=== PATIENT | male | born 1960 | race Caucasian/White ===

== ENCOUNTER 2021-01-21 00:49 | Outpatient (CLI) | payer OTHER, SELFPAY ==
--- NOTE | 2021-01-21 | DI.MRI_ITS ---
Exam(s) MR BRAIN WO/W EXAM: MR BRAIN WO/W CLINICAL HISTORY: F/U ANAPLASTIC ASTROCYTOMA OF BRAIN,C71.9,S/P TREATMENT TECHNIQUE: Multiplanar multisequence MRI of the brain was performed. Both noninfused and contrast i nfused sequences were performed. IV Contrast injected was 20 cc Dotarem. COMPARISON: Compared to outside study performed 09/20/2020 which show some appears to have been a li mited noninfused study. FINDINGS: CEREBRAL PARENCHYMA: There is evidence of previous surgery with left parietal craniotomy and a prominent sub craniotomy si te CSF intensity tract extending from the craniotomy site into the ipsilateral left lateral ventricle roof is noted, this surgical bed measuring approximately 4 cm craniocaudal by 3 cm wide by 3.2 cm wi de. The amount of a surrounding white matter signal abnormality on T2 and FLAIR images is unchanged. No associated she shift. There are no significant enhancing mural nodules nor ring enhancement at this tract level nor within the ventricle and no significant abnormal meningeal enhancement is noted. There are no ring enhancing lesions in the brain. No abnormal signal evident in the cerebellar hem ispheres nor within the ricco, midbrain, and thalami nor in the right-sided white matter. There is no evidence of intracranial hemorrhage, intra or extra-axial. No evidence of cerebellar tonsillar ectopia. PITUITARY GLAND: Upper normal size. No mass nor parasellar abnormality. No obvious abnormality in th e cavernous sinuses. FLOW VOIDS: The expected flow void are noted. No evidence of obvious aneurysm nor obvious vascular ma lformation. Right vertebral artery is dominant. PARANASAL SINUSES: The visualized paranasal sinuses appear unremarkable. ORBITS: No obvious abnormal findings. IMPRESSION: 1. No significant change compared to the prior noninfused outside MRI scan of 09/20/2020. 2. No new abnormal enhancing lesions at nor distal from the surgical tract. An addendum will follow if we receive additional images from the outside study which are apparently b eing sent for. DATA REPOSITORY:
[2021-01-21] MEDS: Normal Saline Flush 10 ML SYR IVP (11:09)
[2021-01-21] MEDS: Gadoterate meglumine 20 ML VIAL IVP (11:10)
== END 2021-01-21 01:09 ==
PROVIDERS: PCP Nurse Practitioner; Visit Provider Internal Medicine
DX: C71.9 Malignant neoplasm of brain, unspecified (principal)
CPT/HCPCS: 70553

== ENCOUNTER 2021-06-04 02:23 | Outpatient (CLI) | payer OTHER, SELFPAY ==
--- NOTE | 2021-06-04 | DI.MRI_ITS ---
Exam(s) MR BRAIN WO/W EXAM: MR BRAIN WO/W CLINICAL HISTORY: ANAPLASTIC ASTROCYTOMA,C71.9,STAGING EXAM TECHNIQUE: Multiplanar multisequence MRI of the brain was performed. Both noninfused and contrast i nfused sequences were performed. IV Contrast injected was 20 cc Dotarem. COMPARISON: MR MR BRAIN WO/W from 01/21/2021 FINDINGS: CEREBRAL PARENCHYMA: Again noted is evidence of left parietal craniotomy with a prominent sub craniot joao CSF intensity tract extending from the craniotomy site into the ipsilateral left lateral ventricl e roof, unchanged. The amount of surrounding white matter signal abnormality on T2 and FLAIR sequenc es is unchanged there are no new significant ring-enhancing lesions in this region or enhancing mural nodules and there is no new abnormal meningeal enhancement. Ventricular size is unchanged. There i s no shift of midline structures. No new significant findings in the cerebellar hemispheres nor within the ricco, midbrain, and thalami nor within the right-sided periventricular white matter. . DWI: There is no new restricted diffusion signal evident. PITUITARY GLAND: No mass nor parasellar abnormality. No obvious abnormality in the cavernous sinuses. FLOW VOIDS: The expected flow void are noted. No evidence of obvious aneurysm nor obvious vascular ma lformation. PARANASAL SINUSES: The visualized paranasal sinuses appear unremarkable. ORBITS: No obvious new abnormal findings. IMPRESSION: 1. No new significant intracranial findings. Findings are unchanged from the MRI scan of 01/21/2021. DATA REPOSITORY:
[2021-06-04 10:17] LABS: CREATININE 1.1 mg/dL (0.70-1.30)
[2021-06-04] MEDS: Normal Saline Flush 10 ML SYR IVP (10:35)
[2021-06-04] MEDS: Gadoterate meglumine 20 ML VIAL IVP (10:36)
== END 2021-06-04 02:43 ==
PROVIDERS: PCP Nurse Practitioner; Visit Provider Internal Medicine
DX: Z01.812 Encounter for preprocedural laboratory examination (principal); C71.9 Malignant neoplasm of brain, unspecified; Z98.890 Other specified postprocedural states
CPT/HCPCS: 70553; 82565

== ENCOUNTER 2021-09-24 01:46 | Outpatient (CLI) | payer OTHER, SELFPAY ==
[2021-09-24] MEDS: Gadoterate meglumine 20 ML VIAL IVP (15:10)
[2021-09-24] MEDS: Normal Saline Flush 10 ML SYR IVP (15:11)
--- NOTE | 2021-09-24 15:25 | DI.MRI_ITS ---
Exam(s) MR BRAIN WO/W EXAM: MR BRAIN WO/W CLINICAL HISTORY: ANAPLASTIC ASTROCYTOMA OF BRAIN, C71.9, ASSESS [place] TECHNIQUE: Multiplanar multisequence MRI of the brain was performed. CONTRAST MATERIAL: IV Contrast: 20 ML of Dotarem contrast administered. COMPARISON: MR MR BRAIN WO/W from 06/04/2021 FINDINGS: VENTRICLES AND EXTRA AXIAL SPACES: Stable size and morphology of the ventricles and extra-axial space s. HEMORRHAGE: None. CEREBRAL PARENCHYMA: No new focus of restricted diffusion to suggest acute infarct. The area of encep halomalacia in the left parietal lobe is unchanged compared to the prior examination. No new areas o f enhancement are seen. There has been no change in the hyperintense signal surrounding the area on the FLAIR and T2 weighted images. MIDLINE SHIFT: None. BRAINSTEM/CEREBELLUM: Normal. CALVARIUM: Normal. ENHANCEMENT: No suspicious enhancement identified. VISUALIZED PARANASAL SINUSES/MASTOIDS: Clear. [place]: Normal flow void. PITUITARY GLAND: Unremarkable. OTHER FINDINGS: IMPRESSION: There has been no change in the postsurgical and post therapeutic changes in the left parietal lobe s pravin 06/04/2021. DATA REPOSITORY:
== END 2021-09-24 02:06 ==
PROVIDERS: PCP Nurse Practitioner; Visit Provider Internal Medicine
DX: C71.3 Malignant neoplasm of parietal lobe (principal); Z01.812 Encounter for preprocedural laboratory examination; Z98.890 Other specified postprocedural states
CPT/HCPCS: 70553; 82565

== ENCOUNTER 2022-07-27 01:31 | Outpatient (CLI) | payer OTHER, SELFPAY ==
--- NOTE | 2022-07-27 | DI.MRI_ITS ---
Exam(s) MR BRAIN WO/W EXAM: MR BRAIN WO/W CLINICAL HISTORY: F/U ASTROCYTOMA, C71.9. TECHNIQUE: Multiplanar multisequence MRI of the brain was performed. CONTRAST MATERIAL: IV Contrast: 20 ML of Dotarem contrast administered. COMPARISON: MR MR BRAIN WO/W from 09/24/2021 FINDINGS: VENTRICLES AND EXTRA AXIAL SPACES: Normal in size and morphology for the patient's age. HEMORRHAGE: None. CEREBRAL PARENCHYMA: No focus of restricted diffusion to suggest acute infarct. Stable appearance of area of encephalomalacia high left frontal parietal region. Stable surrounding areas of high signal. No surrounding enhancement. MIDLINE SHIFT: None. BRAINSTEM/CEREBELLUM: Normal. CALVARIUM: Superior craniotomy defect. ENHANCEMENT: No suspicious enhancement identified. VISUALIZED PARANASAL SINUSES/MASTOIDS: Clear. IMPRESSION: Stable appearance of left frontoparietal area of encephalomalacia. No evidence of recurrence mass or other acute abnormality. DATA REPOSITORY:
[2022-07-27 14:59] LABS: ALT 70 U/L (16-63); AST 44 U/L (15-37); Albumin 4.3 g/dL (3.4-5.0); Alkaline Phosphatase 120 U/L (46-116); Anion Gap 9.4 mmol/L (3-11); BUN 19 mg/dL (7-18); Bilirubin, Total 0.4 mg/dL (0.2-1.0); CO2 25.6 mmol/L (21.0-32.0); CREATININE 1.2 mg/dL (0.70-1.30); Calcium 9.3 mg/dL (8.5-10.1); Chloride 101 mmol/L (98-107); Glucose 229 mg/dL (74-106); Potassium 4.6 mmol/L (3.5-5.1); Sodium 136 mmol/L (136-145); Total Protein 8.4 g/dL (6.4-8.2)
[2022-07-27] MEDS: Normal Saline Flush 10 ML SYR IVP (15:08)
[2022-07-27] MEDS: Gadoterate meglumine 20 ML VIAL IVP (15:09)
== END 2022-07-27 01:51 ==
LOC: DI 01:31
PROVIDERS: PCP Nurse Practitioner; Visit Provider Internal Medicine
DX: C71.3 Malignant neoplasm of parietal lobe (principal); G93.89 Other specified disorders of brain
CPT/HCPCS: 70553; 80053

== ENCOUNTER 2023-04-22 11:39 | Outpatient (CLI) | payer OTHER, SELFPAY ==
--- NOTE | 2023-04-22 11:30 | RT.EKG_ITS ---
APPROVED REPORT Exam: Resting ECG Reason for Exam: Anaplastic Astrocytoma, IDH-mutant Patient Location: O HR:75 bpm ECG Measurements Heart Rate 75 AXIS NH 171 P 30 QRSd 102 QRS 31 QT 403 T 49 QTc 451 Conclusion Sinus rhythm...normal P axis, V-rate 50- 99 Normal Electrocardiogram
== END 2023-04-22 11:40 | disposition home or self-care (01) ==
LOC: CARDOPNVT 11:39
PROVIDERS: PCP Nurse Practitioner; Visit Provider Internal Medicine
DX: C71.9 Malignant neoplasm of brain, unspecified (principal)
CPT/HCPCS: 96375; 93005; 93010

== ENCOUNTER 2023-04-22 13:24 | Outpatient (CLI) | payer OTHER, SELFPAY ==
[2023-04-22 11:51] LABS: Abs Immature Grans 0.02 10^3/uL (0.0-0.06); Absolute Basophil Count 0.06 10^3/uL (0.0-0.2); Absolute Eosinophil Count 0.14 10^3/uL (0.0-0.7); Absolute Lymphocyte Count 1.17 10^3/uL (1.2-3.4); Absolute Monocyte Count 0.39 10^3/uL (0.1-0.8); Absolute Neutrophil Count 3.62 10^3/uL (1.2-6.7); Basophils % 1.1; Eosinophils % 2.6; HCT 45.9 % (40.0-50.0); HGB 15.6 g/dL (13.5-17.5); Immature Grans % 0.4; Lymphocytes % 21.7; MCH 33.1 pg (27.0-33.0); MCV 97 fL (80-95); MPV 9.3 fL (8.0-11.0); Monocytes % 7.2; Platelet Count 197 10^3/uL (130-400); RBC 4.72 10^6/uL (4.36-5.78); RDW 12.6 % (11.8-14.1); RDW-SD 45.4 fL
[2023-04-22 12:16] LABS: ALT 61 U/L (16-63); AST 39 U/L (15-37); Alkaline Phosphatase 115 U/L (46-116); Anion Gap 9.7 mmol/L (3-11); BUN 17 mg/dL (7-18); Bilirubin, Total 0.4 mg/dL (0.2-1.0); CO2 25.3 mmol/L (21.0-32.0); CREATININE 1.1 mg/dL (0.70-1.30); Chloride 101 mmol/L (98-107); Creatine Kinase 70 U/L (39-308); Estimated GFR 76.37 (mL/min/1.73m2); Glucose 233 mg/dL (74-106); Sodium 136 mmol/L (136-145); Total Protein 7.9 g/dL (6.4-8.2)
[2023-04-23 08:39] LABS: HBs Antibody, Quant <3.1 mIU/mL (See Note); Hepatitis B Surface Ab Negative (See Note)
[2023-04-23 08:58] LABS: Hepatitis B Surface Ag Negative (Negative)
[2023-04-23 09:36] LABS: Hep B Core Antibody Negative (Negative)
== END 2023-04-22 13:25 | disposition home or self-care (01) ==
LOC: LBO 13:25
PROVIDERS: PCP Nurse Practitioner; Visit Provider Internal Medicine
DX: C71.9 Malignant neoplasm of brain, unspecified (principal); Z11.59 Encounter for screening for other viral diseases; Z01.84 Encounter for antibody response examination
CPT/HCPCS: 36415; 80053; 82550; 86704; 86706; 86803; 87340; 85025

== ENCOUNTER → 2023-07-07 02:07 | Outpatient (CLI) | payer OTHER, SELFPAY ==
--- NOTE | 2023-07-07 | DI.MRI_ITS ---
Exam(s) MR BRAIN WO/W EXAM: MR BRAIN WO/W CLINICAL HISTORY: F/U ASTROCYTOMA,S/P IDH INHIBITOR TECHNIQUE: Multiplanar multisequence MRI of the brain was performed. CONTRAST MATERIAL: IV Contrast: 20 mL of Dotarem contrast administered. FINDINGS: VENTRICLES AND EXTRA AXIAL SPACES: Normal in size and morphology for the patient's age. HEMORRHAGE: None. CEREBRAL PARENCHYMA: No focus of restricted diffusion to suggest acute infarct. There again seen post surgical changes of a craniotomy at the apex of the skull with a resection cavity in the left parieta l lobe. No soft tissue nodule/mass is seen associated with the per section cavity. There is stable surrounding hyperintense signal on the T2 and FLAIR images. Following contrast administration, no ne w enhancement is seen. MIDLINE SHIFT: None. BRAINSTEM/CEREBELLUM: Normal. CALVARIUM: Normal. ENHANCEMENT: No suspicious enhancement identified. The dural enhancement appears smooth and unchanged . The linear enhancement seen at the inferior and anterior aspect of the resection cavity is unchang ed. VISUALIZED PARANASAL SINUSES/MASTOIDS: Clear. [place]: Normal flow void. PITUITARY GLAND: Unremarkable. OTHER FINDINGS: IMPRESSION: Stable appearance of the postsurgical changes. No evidence of a recurrent or residual mass. DATA REPOSITORY:
[2023-07-07] MEDS: Normal Saline Flush 10 ML SYR IVP (13:53)
[2023-07-07] MEDS: Gadoterate meglumine 20 ML SYRINGE IVP (13:54)
== END ==
PROVIDERS: PCP Nurse Practitioner; Visit Provider Internal Medicine
DX: Z98.890 Other specified postprocedural states (principal); C71.9 Malignant neoplasm of brain, unspecified
CPT/HCPCS: 70553

== ENCOUNTER → 2023-09-21 01:58 | Outpatient (CLI) | payer OTHER, SELFPAY ==
--- NOTE | 2023-09-21 | DI.MRI_ITS ---
Exam(s) MR BRAIN WO/W EXAM: MR BRAIN WO/W CLINICAL HISTORY: F/U ANAPLSATIC ASTROCYTOMA,EVAL POST MEDIAL NODULE TO RESECTION CAVITY,ON TECHNIQUE: Multiplanar multisequence MRI of the brain was performed. CONTRAST MATERIAL: IV Contrast: 20 mL of Dotarem contrast administered. MR MR BRAIN WO/W from 07/07/2023 FINDINGS: VENTRICLES AND EXTRA AXIAL SPACES: Normal in size and morphology for the patient's age. HEMORRHAGE: There again seen hypo intense areas on the gradient images likely reflecting old hemorrha ge. These are stable. CEREBRAL PARENCHYMA: No focus of restricted diffusion to suggest acute infarct. There are stable post surgical changes seen in the left parietal lobe in the resection cavity. There is stable surrounding hyperintense T2 signal seen on the FLAIR and T2 weighted images around the resection cavity. Follow ing contrast administration no suspicious or new enhancement is identified. MIDLINE SHIFT: None. BRAINSTEM/CEREBELLUM: Normal. CALVARIUM: Craniotomy changes are again seen in the apex of the skull. ENHANCEMENT: No new or suspicious enhancement identified. VISUALIZED PARANASAL SINUSES/MASTOIDS: Mild right mastoiditis. The remaining visualized paranasal si nuses and left mastoid air cells are clear. [place]: Normal flow void. PITUITARY GLAND: Unremarkable. OTHER FINDINGS: IMPRESSION: No evidence of tumor recurrence or progression. DATA REPOSITORY:
== END ==
PROVIDERS: PCP Nurse Practitioner; Visit Provider Internal Medicine
DX: C71.9 Malignant neoplasm of brain, unspecified (principal)
CPT/HCPCS: 70553